=== PATIENT | female | born 1940 | race Caucasian/White ===

== ENCOUNTER 2016-09-07 11:18 | Inpatient (IN) | payer MEDICARE, OTHER ==
[~2016-09-07] VITALS: Ht 165.1 cm; Wt 59.9 kg
[~2016-09-07 11:18] MED LIST: AMLO2.5T PO; CLOP75TA PO; FAMO1TAB PO; INSU100C SQ-INSULIN; INSU100I13 SQ-INSULIN; LEVO750T6 PO; QUIN40TA7 PO; SULF1TAB24 PO; THYR97.5 PO
[2016-09-07] MEDS ORDERED: SODIUM CHLORIDE FLUSH 10ML SYR IVF ONE (11:30)
[2016-09-07] MEDS ORDERED: MECLIZINE CHEWABLE 25 MG TAB ONE (11:51)
[2016-09-07 11:54] LABS: HEMATOCRIT 38.5 % (34.6-47.8); HEMOGLOBIN 13.1 g/dL (11.7-16.4)
[2016-09-07] MEDS ORDERED: MECLIZINE CHEWABLE 25 MG TAB PO ONE (12:00)
[2016-09-07 12:05] LABS: BLOOD UREA NITROGEN 32 mg/dL (7-18)
[2016-09-07 12:12] LABS: ASPARTATE AMINO TRANSFERASE 20 U/L (15-37)
[2016-09-07 12:13] LABS: IS PT STATUS REG ER OR PRE ER? YES
[2016-09-07] MEDS ORDERED: INSU100V8 SQ (12:48)
[2016-09-07] MEDS ORDERED: SODIUM CHLORIDE 0.9%, 500ML IVBOLUS ONE (13:00)
[2016-09-07] MEDS ORDERED: ACETAMINOPHEN 325 MG TABLET PO PRN (16:00)
[2016-09-07] MEDS ORDERED: BISACODYL 10 MG SUPP PR PRN (16:00)
[2016-09-07] MEDS ORDERED: DOCUSATE 100 MG CAPSULE PO PRN (16:00)
[2016-09-07] MEDS ORDERED: GLUCAGON 1 MG IM PRN (16:30)
[2016-09-07] MEDS ORDERED: DEXTROSE 4 GM TAB.CHEW PO PRN (16:30)
[2016-09-07] MEDS ORDERED: DEXTROSE 50%, 50ML SYRINGE IVPush PRN (16:30)
[2016-09-07] MEDS ORDERED: INSULIN ASPART 100 UNITS/ML, PEN SQ-INSULIN SCH ×2 (17:00→21:00)
[2016-09-07 17:05] VITALS: BP 164/73
[2016-09-07] MEDS ORDERED: MAALOX/HYOSCYAMINE/LIDOCAINE 45 ML BTL PO PRN (18:00)
[2016-09-07] MEDS ORDERED: FAMOTIDINE 20 MG TABLET PO ONE (18:00)
[2016-09-07] MEDS: HEPARIN 5,000 UNITS/ML, 1ML SQ SCH (18:35)
[2016-09-07 20:00] VITALS: BP 163/68
[2016-09-07] MEDS: INSULIN DETEMIR 100 UNITS/ML, PEN SQ-INSULIN SCH (20:46)
[2016-09-07] MEDS: SODIUM CHLORIDE 0.9% 1,000 ML IV SCH ×2 (20:46→20:48)
[2016-09-07] MEDS: SODIUM CHLORIDE FLUSH 10ML SYR IVF SCH (20:47)
[2016-09-07 21:20] VITALS: BP 164/73
[2016-09-08 02:00] VITALS: BP 171/70
[2016-09-08 02:01] VITALS: BP 152/68
[2016-09-08 02:02] VITALS: BP 116/65
[2016-09-08] MEDS: HEPARIN 5,000 UNITS/ML, 1ML SQ SCH ×2 (05:53→18:41)
[2016-09-08 06:09] LABS: BLOOD UREA NITROGEN 27 mg/dL (7-18)
[2016-09-08] MEDS: FAMOTIDINE 20 MG TABLET PO SCH (08:04)
[2016-09-08] MEDS: CLOPIDOGREL 75 MG TABLET PO SCH (08:04)
[2016-09-08] MEDS: SODIUM CHLORIDE FLUSH 10ML SYR IVF SCH ×2 (08:05→20:36)
[2016-09-08] MEDS: THYROID PORK 97.5 MG PO SCH (08:06)
[2016-09-08 08:30] VITALS: BP_SYST 121; BP_SYST 171; BP_SYST 194; BP_DIAS 68; BP_DIAS 72
[2016-09-08] MEDS: INSULIN ASPART 100 UNITS/ML, PEN SQ-INSULIN SCH ×3 (08:47→17:39)
[2016-09-08 14:53] VITALS: BP 186/74
[2016-09-08] MEDS ORDERED: AMLODIPINE 2.5 MG TABLET PO SCH (15:00)
[2016-09-08] MEDS: LISINOPRIL 5 MG TABLET PO SCH (16:00)
[2016-09-08] MEDS: INSULIN DETEMIR 100 UNITS/ML, PEN SQ-INSULIN SCH (17:39)
[2016-09-08] MEDS ORDERED: FAMOTIDINE 20 MG TABLET PO ONE (18:00)
[2016-09-08] MEDS ORDERED: AMLODIPINE 5 MG TABLET PO ONE (18:00)
[2016-09-08 18:38] VITALS: BP_SYST 207; BP_SYST 209; BP_DIAS 67; BP_DIAS 74
[2016-09-08] MEDS ORDERED: INSULIN DETEMIR 100 UNITS/ML, PEN SQ-INSULIN ONE (19:30)
[2016-09-08] MEDS: SODIUM CHLORIDE 0.9% 1,000 ML IV SCH (22:40)
[2016-09-09] VITALS (8 sets, daily range): BP systolic 119–184; BP diastolic 66–73
[2016-09-09] MEDS: HEPARIN 5,000 UNITS/ML, 1ML SQ SCH (05:28)
[2016-09-09] MEDS: CLOPIDOGREL 75 MG TABLET PO SCH (08:46)
[2016-09-09] MEDS: INSULIN ASPART 100 UNITS/ML, PEN SQ-INSULIN SCH ×3 (08:46→16:56)
[2016-09-09] MEDS: THYROID PORK 97.5 MG PO SCH (08:46)
[2016-09-09] MEDS: SODIUM CHLORIDE FLUSH 10ML SYR IVF SCH (08:46)
[2016-09-09] MEDS: FAMOTIDINE 20 MG TABLET PO SCH (08:46)
[2016-09-09] MEDS: LISINOPRIL 5 MG TABLET PO SCH (08:46)
[2016-09-09] MEDS ORDERED: AMLODIPINE 2.5 MG TABLET PO SCH (09:00)
[2016-09-09] MEDS ORDERED: QUIN5TAB7 PO (15:41)
[2016-09-09] MEDS ORDERED: INSULIN DETEMIR 100 UNITS/ML, PEN SQ-INSULIN SCH (17:00)
== END 2016-09-09 17:21 | disposition home health service (06) | DRG 74 ==
LOC: ED 12:39 → INTOOBSV 12:40 → EDIP 12:40 → 3NE 13:44 → 4WST 17:43 → OBSVTOIN 09-08 15:54
PROVIDERS: ADMIT Family Medicine; ATTEND Family Medicine
DX: E11.43 Type 2 diabetes mellitus with diabetic autonomic (poly)neuropathy (principal); N17.9 Acute kidney failure, unspecified; E11.22 Type 2 diabetes mellitus with diabetic chronic kidney disease; E11.51 Type 2 diabetes mellitus with diabetic peripheral angiopathy without gangrene; E87.1 Hypo-osmolality and hyponatremia; I95.1 Orthostatic hypotension; R26.81 Unsteadiness on feet; E03.9 Hypothyroidism, unspecified; E86.0 Dehydration; E11.319 Type 2 diabetes mellitus with unspecified diabetic retinopathy without macular edema; S62.165A Nondisplaced fracture of pisiform, left wrist, initial encounter for closed fracture; I12.9 Hypertensive chronic kidney disease with stage 1 through stage 4 chronic kidney disease, or unspecified chronic kidney disease; E11.649 Type 2 diabetes mellitus with hypoglycemia without coma; E86.1 Hypovolemia; F32.9 Major depressive disorder, single episode, unspecified; F41.9 Anxiety disorder, unspecified; H54.8 Legal blindness, as defined in USA; I25.10 Atherosclerotic heart disease of native coronary artery without angina pectoris; S62.162A Displaced fracture of pisiform, left wrist, initial encounter for closed fracture; J45.909 Unspecified asthma, uncomplicated; W18.30XA Fall on same level, unspecified, initial encounter; Y92.89 Other specified places as the place of occurrence of the external cause; Z79.4 Long term (current) use of insulin; Z91.19 Patient's noncompliance with other medical treatment and regimen; Z91.81 History of falling
CPT/HCPCS: 36415; 70450; 80048; 80053; 81001; 82962; 84443; 84484; 85025; 87086; 93005; 96360; G0378; J1644; J1815; J7030; J7040